=== PATIENT | male | born 1965 | race Caucasian/White ===

== ENCOUNTER 2021-05-26 19:56 | Emergency (ER) | payer OTHER ==
[2021-05-26 20:54] LABS: BASOPHIL 1.5 % (0-2); HCT 46.9 % (42.0-52.0); HGB 16.1 g/dl (13.2-18.0); MCH 33.1 pg (25.0-31.0); MCHC 34.3 g/dL (32.0-36.0); MCV 96.5 fL (78.0-100.0); MPV 8.4 fL (6.0-9.5); NEUTROPHIL 67.8 % (41-80); NRBC 0; PLT 116 K/uL (150-400); RBC 4.86 M/uL (4.70-6.00); RDW 12.5 % (11.5-14.0); WBC 5.5 K/uL (4.0-10.5)
[2021-05-26 21:04] LABS: INR 0.97 (0.9-1.2); PROTHROMBIN TIME 12.3 SECONDS (11.8-13.4); PTT 27.4 SECONDS (24.4-34.7)
[2021-05-26 21:11] LABS: ALBUMIN 3.1 g/dL (3.4-5.0); BILIRUBIN - TOTAL 0.3 mg/dL (0.2-1.0); BUN/CREAT RATIO (CALC) 9.3 RATIO; CREATININE 0.43 mg/dL (0.67-1.17); POTASSIUM 3.9 mmol/L (3.5-5.1); TOTAL PROTEIN 7.1 g/dL (6.4-8.2)
[2021-05-27] MEDS ORDERED: NAPROXEN500 MG PO (06:06)
[2021-05-27] MEDS ORDERED: PERCOCET 5-3251 EACH PO (06:06)
== END 2021-05-27 09:30 | disposition home or self-care (01) ==
LOC: FER 19:56
PROVIDERS: Internal Medicine
DX: S27.0XXA Traumatic pneumothorax, initial encounter (principal); S27.321A Contusion of lung, unilateral, initial encounter; S22.42XA Multiple fractures of ribs, left side, initial encounter for closed fracture; S01.01XA Laceration without foreign body of scalp, initial encounter; S00.12XA Contusion of left eyelid and periocular area, initial encounter; Z98.890 Other specified postprocedural states; V43.02XA Car driver injured in collision with other type car in nontraffic accident, initial encounter; Y92.410 Unspecified street and highway as the place of occurrence of the external cause
CPT/HCPCS: 36415; 70450; 70486; 71045; 71046; 71275; 72125; 80053; 85025; 85610; 85730; 96374; 96375; 96376; G0480; J1170; J2270; Q9967